=== PATIENT | female | born 1990 | race Two or more races ===

== ENCOUNTER → 2018-12-31 | Outpatient (REF) | payer OTHER ==
[2019-01-01 07:21] LABS: CHLAMYDIA DNA AMPLIFICATION NEGATIVE (NEGATIVE); GC DNA AMPLIFICATION NEGATIVE (NEGATIVE)
== END ==
LOC: M SFHCLERA 18:53
PROVIDERS: ATTEND Physician Assistant Medical
DX: R35.0 Frequency of micturition (principal)

== ENCOUNTER 2019-08-07 20:59 | Emergency (ER) | payer OTHER ==
[~2019-08-07] VITALS: Ht 177.8 cm; Wt 121.8 kg
[2019-08-07] MEDS ORDERED: ACET-897 PO (21:51)
[2019-08-07 23:07] VITALS: BP 125/69
== END 2019-08-07 23:22 | disposition home or self-care (01) ==
LOC: M ED 20:59
DX: F43.21 Adjustment disorder with depressed mood (principal); F51.05 Insomnia due to other mental disorder